=== PATIENT | female | born 1990 | race Caucasian/White ===

== ENCOUNTER 2017-01-20 00:45 | Emergency (ER) | payer OTHER ==
[~2017-01-20] VITALS: Ht 175.3 cm; Wt 90.3 kg
[~2017-01-20 00:45] MED LIST: ACYC-1 PO; MEDR4PAK3 PO; TRIA.1%T TOP
[2017-01-20 00:48] VITALS: BP 125/77; PULSE 106; RESP 16; TEMP 98.3; O2SAT 100
[2017-01-20 02:45] LABS: BLOOD, URINE NEG (NEG); GLUCOSE,URINE NEG (NEG); KETONE, URINE NEG (NEG); NITRITE,URINE NEG (NEG)
[2017-01-20 02:49] VITALS: BP 125/74; PULSE 89; RESP 18; TEMP 97.9; O2SAT 98
[2017-01-20] MEDS ORDERED: AMPH1TAB29 PO (02:58)
[2017-01-20 03:06] LABS: URINE COLOR YELLOW (YELLW/STRAW)
[2017-01-20 03:07] LABS: MUCUS URINE MOD /lpf (OCC)
[2017-01-20 03:08] LABS: SQUAMOUS EPITHELIAL CELL URINE > 8 /hpf (0-5)
[2017-01-20 03:09] LABS: BACTERIA, URINE MOD /hpf; COMMENT (UR) CULTURE INDICATED; CULTURE IF INDICATED CULTURE INDICATED
[2017-01-20 03:45] VITALS: BP 103/65; PULSE 86; RESP 18; O2SAT 98
--- NOTE | 2017-01-20 04:08 | PD ---
HPI Chief Complaint: Abdominal Pain Time Seen by Provider: 03:53 Travel History International Travel<30 days: No Contact w/Intl Traveler<30days: No Traveled to known affect area: No History of Present Illness HPI The patient is a 26-year-old female, G1, P1, A0 who has an IUD in place who complains of bilateral flank pain and suprapubic pain since 11:30 PM tonight. She denies any fever. She does have nausea without vomiting. She is sexually active without protection. She denies any dysuria, frequency or urgency. She denies any vaginal discharge. PFS Past Medical History ADD: Yes Diminished Hearing: No Musculoskeletal: Yes (chronic back pain) Immunizations Current: Yes Tetanus Vaccination: > 5 Years Influenza Vaccination: No ?: Unknown LMP: 2 WEEKS AGO : 1 Para: 1 Miscarriage: 0 : 0 Past Surgical History Tonsillectomy: Yes (and adenoids) Social History Alcohol Use: No Tobacco Use: Yes (3PPD) Substance Use: No Allergies-Medications (Allergen,Severity, Reaction): Coded Allergies: No Known Allergies (Unverified , 01/20/17) Reported Meds & Prescriptions Reported Meds & Active Scripts Active Macrobid (Nitrofurantoin Monohydrate Macrocrystals) 100 Mg Capsule 100 Mg PO BID 10 Days Reported Adderall (Amphetamine-Dextroamphetamine) 5 Mg Tab 2 Mg PO DAILY PRN Avoid late evening doses. Space doses at least 4 to 6 hours if more than once/day dosing. Review of Systems Except as stated in HPI: all other systems reviewed are Neg Physical Exam Narrative GENERAL: The patient is alert, oriented 3 and slight apparent distress with her suprapubic pain. Her vital signs initially showed a heart rate of 106 but repeat vital signs are normal. SKIN: Focused skin assessment warm/dry. HEAD: Atraumatic. Normocephalic. EYES: Pupils equal and round. No scleral icterus. No injection or drainage. ENT: No nasal bleeding or discharge. Mucous membranes pink and moist. NECK: Trachea midline. No JVD. CARDIOVASCULAR: Regular rate and rhythm. No murmur appreciated. RESPIRATORY: No accessory muscle use. Clear to auscultation. Breath sounds equal bilaterally. GASTROINTESTINAL: Abdomen soft, with tenderness to direct palpation in both flanks and suprapubic area., nondistended. Hepatic and splenic margins not palpable. No guarding or rebound is present. MUSCULOSKELETAL: No obvious deformities. No clubbing. No cyanosis. No edema. NEUROLOGICAL: Awake and alert. No obvious cranial nerve deficits. Motor grossly within normal limits. Normal speech. PSYCHIATRIC: Appropriate mood and affect; insight and judgment normal. GENITOURINARY: Normal external genitalia without lesions or erythema. Vaginal vault without blood or drainage. Cervical os was closed without drainage. There is exquisite cervical motion tenderness. Uterus tender and nonenlarged. Bilateral adnexa tender without masses. Data Data Last Documented VS Vital Signs Date Time Temp Pulse Resp B/P Pulse Ox O2 Delivery O2 Flow Rate FiO2 01/20/17 02:49 97.9 89 18 125/74 98 Orders Urinalysis - C+S If Indicated (01/20/17 02:29) Urine Culture (01/20/17 02:30) Azithromycin Powd Pack (Zithromax Powd P (01/20/17 04:30) Lidocaine 1% Inj (50 Ml) (Xylocaine 1% I (01/20/17 04:30) Ceftriaxone Inj (Rocephin Inj) (01/20/17 04:30) Nitrofurantoin Monohyd Macrocr (Macrobid (01/20/17 04:30) Labs Laboratory Tests Test 01/20/17 02:30 Urine Color YELLOW Urine Turbidity MOD Urine pH 5.0 Urine Specific Casar 1.028 Urine Protein NEG mg/dL Urine Glucose (UA) NEG mg/dL Urine Ketones NEG mg/dL Urine Occult Blood NEG Urine Nitrite NEG Urine Bilirubin NEG Urine Leukocyte Esterase NEG Urine WBC 6-8 /hpf Urine Squamous Epithelial > 8 /hpf Cells Urine Amorphous Sediment MOD Urine Bacteria MOD /hpf Urine Mucus MOD /lpf Microscopic Urinalysis Comment CULTURE INDICATED MDM Medical Decision Making Medical Screen Exam Complete: Yes Emergency Medical Condition: Yes Medical Record Reviewed: Yes Interpretation(s) The urine shows specific gravity 1.0-8, 6-8 white cells, moderate bacteria and culture is indicated. Differential Diagnosis Cystitis, pyelonephritis, PID, colitis, acute appendicitis Narrative Course The patient appears to have PID and a urinary tract infection. Diagnosis Primary Impression: PID (acute pelvic inflammatory disease) Additional Impression: UTI (urinary tract infection) Additional Instructions: The urinary antibiotic is one twice daily for 10 days. Follow-up with your web support engineer as we discussed. Med/Other Pt SpecificInfo: Prescription(s) given Scripts Nitrofurantoin Monohydrate Macrocrystals (Macrobid)100 Mg [id number] Mg PO BID 10 Days Ref 0 Prov:Fredrick Kathleen MD 01/20/17 Disposition: 01 DISCHARGE HOME Condition: Stable Fredrick Kathleen MD Jan 20, 2017 04:08
[2017-01-20] MEDS ORDERED: MACR100C2 PO (04:24)
[2017-01-20] MEDS ORDERED: LIDOCAINE HCL 1% 50 ML VIAL IM ONE (04:30)
[2017-01-20] MEDS ORDERED: NITROFURANTOIN MONOHYD MACROCR 100 MG CAP PO ONE (04:30)
[2017-01-20] MEDS ORDERED: AZITHROMYCIN PWD FOR SUSP 1 GM PACKET PO ONE (04:30)
[2017-01-20 04:45] VITALS: BP 112/77; PULSE 82; RESP 16; TEMP 98.6; O2SAT 100
== END 2017-01-20 05:24 | disposition home or self-care (01) ==
LOC: PHED 00:45
DX: N73.0 Acute parametritis and pelvic cellulitis (principal); N39.0 Urinary tract infection, site not specified; R11.0 Nausea; F17.200 Nicotine dependence, unspecified, uncomplicated; Z86.59 Personal history of other mental and behavioral disorders; Z87.39 Personal history of other diseases of the musculoskeletal system and connective tissue
CPT/HCPCS: 81001; 87086; 96372; 99284; J0696

== ENCOUNTER 2017-12-06 02:04 | Inpatient (IN) ==
--- NOTE | 2017-12-14 12:40 | MP ---
cc: Alcira Vivas MD, Camille MD DATE OF OPERATION: 12/10/2017 PREOPERATIVE DIAGNOSIS: Large abdominopelvic mass of probable ovarian origin. POSTOPERATIVE DIAGNOSIS: Left ovarian mucinous cystadenoma. PROCEDURE PERFORMED: Exploratory laparotomy, resection of 28-30 cm right ovarian mass (right salpingo-oophorectomy), omentectomy, intraperitoneal washings for cytology. SURGEON: Alcira Vivas MD BAG TESTER: [place] neurosurgical physician assistant. ANESTHESIA: General endotracheal anesthesia. ESTIMATED BLOOD LOSS: 100 mL IV FLUIDS: 2000 mL URINE OUTPUT: 150 mL HISTORY: This 27-year-old female presented to [facility] with abdominal pain, found on exam and imaging to have a very large multiloculated complex mass occupying the pelvis and the abdomen, thought to be of probable ovarian origin. She was counseled regarding these findings and options. She was in favor of moving forward with surgical exploration. Given her young age of 27 years, the plan was discussed and efforts were made to be as conservative as possible based on surgical and histopathologic findings in an effort to try to avoid premature disruption of reproductive capacity and to avoid premature menopause. She is seen again in the preoperative holding area with findings reviewed, plan of care discussed. Questions were asked and answered. She expressed good understanding and would like to move forward with surgery. FINDINGS: Upon exploration of the peritoneal cavity, a small amount of clear ascites fluid is collected and sent for cytology. The mass occupies the pelvis, extends to the abdomen, essentially to the level of the sternum. It was multilobulated. There are cystic components and multiple internal septations, some thickening of the capsule, but the capsule seems intact. Further evaluation confirmed that this was arising from and replacing the right ovary. The left tube and ovary grossly appeared normal. The uterus appeared normal. There was no appreciably enlarged lymph nodes on the liver, diaphragm edges were smooth. The omentum grossly appears normal other than some inflammatory changes where it was adherent to the mass. The appendix, large and small bowel all visibly and palpably normal. Frozen section analysis showed the mass to have a complex architectural structure; it was a mucinous cystadenoma. There was no overt cellular atypia, no overt borderline components at the time of frozen section, certainly no evidence of invasive disease on initial evaluation with final pathology pending. PROCEDURE: She was taken to the operating room and placed in dorsal lithotomy position. After general endotracheal anesthesia was administered, a timeout was undertaken. She was identified by site recognition and hospital ID [email or web address] and the proposed procedure was reviewed and confirmed. She was carefully positioned in lithotomy position, arms out to the side, no pressure points or malalignments. Prepped and draped in sterile fashion, a Fraser catheter placed in the bladder, orogastric tube in the stomach. Incision made from the symphysis in the midline toward the umbilicus, carried down to the level of the fascia. The fascia was entered. The rectus muscles were in the midline. The peritoneal cavity was entered. A small amount of fluid was obtained for cytology. The anatomy was explored with findings as described above. The ventral surface of the mass had what appeared to be a cystic component, extended up through the vertical incision. Lap pads were used circumferentially and a needle aspiration was initiated. Very viscous, mucinous fluid was detected which required a larger bore drain in order to facilitate drainage. This was carried out in a very controlled fashion with no intraperitoneal spill until approximately 3 liters of fluid were removed and then a [id number] suture was placed over the suction canister site within the thickened capsule of the mass as it was elevated with Allis clamps beyond the vertical incision and out beyond the abdominal cavity. Further manipulation and traction now allowed repositioning of the mass. Confirmed there were no significant adhesions posteriorly and the mass was delivered through the available abdominal incision, thereby avoiding a much larger incision and the morbidity associated with a more extensive excision. The anatomy was further clarified and this confirmed that this mass was arising from and replacing the right ovary. Retroperitoneal dissection was initiated lateral to and parallel to the gonadal vessels. The right ureter was identified, the right infundibulopelvic ligament was isolated. The intervening peritoneum was opened and the right uteroovarian ligament was doubly clamped and the right infundibulopelvic ligament was doubly clamped, cut, and suture ligated and now the right uteroovarian ligament was cut and doubly suture ligated. This removed the large right ovarian mass sent for frozen histopathologic analysis with findings as described above. Inspection of the anatomy gave findings as described above. Because of the inflammatory type changes to the omentum and the possibility of a neoplasm, a generous portion of the infracolic omentum was removed. Isolating nonvascular attachments were taken down with cautery. Vascular attachments were isolated, clamped, cut, and suture ligated with 2-0 Vicryl sutures in a stepwise fashion following the course of the transverse colon, removing the majority of the infracolic omentum sent for permanent histopathologic analysis. The sites were inspected and noted to be hemostatic. The contralateral tube and ovary were inspected and noted to be normal. The uterus appeared normal. No further dissection was carried out given her young age and the potential desire for future fertility should circumstances change. The frozen section came back showing no obvious borderline elements, no malignant elements. It was felt that all reasonable surgical objectives had been completed. Visual and manual inspection of the peritoneal cavity revealed there to be no remaining foreign objects. Preliminary counts were correct. The pelvis was thoroughly irrigated and topical hemostatic Leticia powder was placed in the right pelvic sidewall dissection. Attention was directed toward closing. The abdominal wall was closed with 0 looped PDS in a running modified Smead-Moore fashion starting at the apices and meeting at the midpoint where the sutures were tied. Subcutaneous tissue was irrigated, Felipe's fascia reapproximated with 2-0 Vicryl sutures and the skin edge closed with running 3-0 Vicryl subcuticular. Steri-Strips and dry sterile dressings were placed over the incision. Pelvic exam confirmed there were no remaining foreign objects in the vagina. Final counts were correct. She was returned to dorsal supine position and was pending reversal of anesthesia when I left the operating room to precede her to the postanesthesia care unit. MD DAVID Sterling/MARCOS , 09:58 AM , 10:26 AM
== END 2017-12-11 14:01 | disposition home or self-care (01) ==
LOC: N07 02:05
PROVIDERS: ADMIT Hospitalist; ATTEND Hospitalist